=== PATIENT | female | born 1970 | race Two or more races ===

== ENCOUNTER 2021-04-10 20:39 | Emergency (ER) | payer OTHER ==
[~2021-04-10] VITALS: Ht 165.1 cm; Wt 65.8 kg
[2021-04-11] MEDS ORDERED: BENADRYL ALLERG25 MG PO (02:49)
[2021-04-11] MEDS ORDERED: PEPCID AC20 MG PO (02:50)
== END 2021-04-11 03:14 | disposition home or self-care (01) ==
LOC: ER 20:39
DX: R42 Dizziness and giddiness (principal); I10 Essential (primary) hypertension